=== PATIENT | male | born 1985 | race African-American/Black ===

== ENCOUNTER 2016-05-25 06:27 | Observation (INO) ==
[2016-05-25 06:53] LABS: URINE MICRO REVIEW NEEDED? NO; URINE SOURCE VOIDED
[2016-05-25 06:57] LABS: BILIRUBIN URINE NEGATIVE (NEGATIVE); BLOOD URINE NEGATIVE (NEGATIVE); COLOR YELLOW; GLUCOSE URINE NEGATIVE (NEGATIVE); LEUKOCYTES URINE NEGATIVE (NEGATIVE); NITRITE URINE NEGATIVE (NEGATIVE); PH URINE 8.5; PROTEIN URINE 70 mg/dL (NEGATIVE); SP GRAVITY URINE 1.024; TURBIDITY URINE HAZY (CLEAR); UROBILINOGEN URINE 2 mg/dL (NORMAL)
[2016-05-25 06:58] LABS: UR EPITHELIAL CELLS <10 /HPF (<10); URINE BACTERIA NEGATIVE /HPF; URINE RBC <10 /HPF (<10); URINE WBC <10 /HPF (<10)
[2016-05-25] MEDS ORDERED: ZOFRAN ODT PO ONE (06:58)
[2016-05-25] MEDS ORDERED: PROTONIX PO ONE (06:58)
--- NOTE | 2016-05-25 07:04 | PROVIDER DOCUMENTATION ---
HPI-Abdominal Pain/GI Problem - History of Present Illness-ABD Nature of Presenting Problems: WAKE UP W UPSET STOMACH //NAUSEA AND VOMITING GASTRIC JUICE TIMES 2 ,,,ALSO FELT HOT ....PT W/HX OF GERD .AND SIMILAR SXS BEFORE ..PT LAST CT ON SHOWS SMALL [place] Abdominal Pain Onset Location: reports: epigastric Pain Radiation: reports: epigastric Quality of Pain: reports: cramping Severity in ED: reports: moderate Onset/Duration: reports: 4-6 hours ago Timing: reports: improving, intermittent Activities at Onset: reports: other (PT [employer]) Exposure to sick contacts?: No Associated Symptoms: reports: heartburn, muscle aches, sinus congestion/drainage , nausea, vomiting. denies: constipation, EENT symptoms, genitourinary problems Last BM: 24 hours ago Dark Stools Present?: reports: none noticed Rectal Pain: reports: none # of Vomiting Episodes: 2 Emesis Description: reports: clear Bruising or Bleeding Gums?: No Similar Symptoms Previously?: Yes Recently seen or treated by another doctor?: No <Mark Choi - Last Filed: 05/25/16 08:11> <Sloan Castro - Last Filed: 05/25/16 11:52> - General Chief Complaint: Vomiting Stated Complaint: FEVER/VOMITING Time Seen by Provider: 05/25/16 06:43 Allergies/Adverse Reactions: Patient Allergies Allergy/AdvReac Type Severity Reaction Status Date / Time No Known Allergies Allergy Verified 05/25/16 07:43 Home Medications: Home Medication List Medication Instructions Recorded Confirmed Last Taken Type Ondansetron Odt [Zofran 4 mg Odt] 4 mg PO Q6H PRN PRN #10 tablet 05/25/16 Unknown Rx Pantoprazole [Protonix] 40 mg PO DAILY@0700 #30 tablet 05/25/16 Unknown Rx Promethazine [Phenergan] 25 mg PO Q6H PRN PRN #10 tablet 05/25/16 Unknown Rx Review of Systems - Adult - REVIEW OF SYSTEMS - ADULT Constitutional: reports: see HPI All Other Systems: Reviewed and Negative <Mark Choi - Last Filed: 05/25/16 08:11> Past History - Adult - PAST MEDICAL HISTORY-ADULT Review of Records: reports: Old Records Reviewed, Nursing Assessment Review, Medications Reviewed, Social history reviewed & non-contributory. Major Childhood Illnesses: reports: denies history Cardiovascular: reports: denies history Respiratory: reports: denies history Gastrointestinal: reports: GERD Obstetrical/Gynecological: reports: denies history Genitourinary: reports: denies history Musculoskeletal: reports: denies history Neurological: reports: denies history Endocrine/Immune: reports: denies history Other Conditions: reports: denies history - PRIOR SURGERIES/PROCEDURES Surgical/Procedure History: reports: hernia repair, orthopedic (extremity), other - PRIOR HOSPITALIZATIONS Prior Hospitalizations: reports: for other non-related - IMMUNIZATION STATUS Childhood Immunizations: UTD Flu Vaccine: See Nurse Assessment - FAMILY HISTORY Family History: reviewed, not pertinent - SOCIAL HISTORY Smoking: less than 1 pack/day Provider spent 3-5 mins advising pt. on dangers of tobacco.: Discussed manners to quit use, and f/u contacts for add'l counseling. Substance Use: none presently/history of abuse Alcohol Use Frequency: once a week Number of drinks per typical drinking period:: 1 drink Living Situation: family <Mark Choi - Last Filed: 05/25/16 08:11> Physical Exam-General - PHYSICAL EXAM-ADULT Initial Vital Signs Reviewed: Yes - CONSTITUTIONAL General Appearance: appears well, alert, no apparent distress - EYES Eyes: PERRL/EOMI - HEAD, EARS, NOSE, MOUTH & THROAT HENMT: normocephalic/atraumatic, moist mucous membranes, TMs normal, pharyngeal erythema - NECK Neck: non-tender, full range of motion - RESPIRATORY Respiratory: chest non-tender, lungs clear, normal breath sounds - CARDIOVASCULAR Cardiovascular: normal peripheral pulses, regular rate, rhythm, no edema - GASTROINTESTINAL (ABDOMEN) Abdominal Exam: normal bowel sounds, non tender, soft, no organomegaly, other ( PAIN IN THE EPIGASTRIC AREA). 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 will page hospitalist for admission due to elevated white count. 1145-- discussed with Dr Sands, accepts for admission. - EKG 1 Time of EKG reading by physician:: 07:59 EKG Read and Signed by:: Mark Choi EKG Interpretation (*Must complete 3 of following elements*): Normal Rate: 62 Rhythm: sinus rhythm with marked sinus arrhythmia [place]: normal QRS: normal [place] Interval: normal ST Wave: normal 2 Time of EKG reading by physician:: 08:26 EKG Read and Signed by:: Mark Choi EKG Interpretation (*Must complete 3 of following elements*): Abnormal Rate: 40 Rhythm: sinus bradycardia [place]: normal QRS: normal - XRAY 1 XRAY Study: Chest Impression: Normal - CT/MRI 1 CT Study: Abdomen Impression: Normal, See EMR Report CT Results: negative - CONSULTS/PCP/HOSPITALIST Notification #1 *Consult/PCP/Hospitalist*: Dr Sands Time Discussed: 11:45 Consult Disposition: Admit <Sloan Castro - Last Filed: 05/25/16 11:52> Departure - Departure Time of Disposition Order: 08:11 Certified Medical Emergency: Urgent <Mark Choi - Last Filed: 05/25/16 08:11> - Departure Time of Disposition Order: 11:50 Certified Medical Emergency: Emergent <Sloan Castro - Last Filed: 05/25/16 11:52> - Departure DIAGNOSIS: Vomiting, GERD (gastroesophageal reflux disease), Leukocytosis Disposition: ADMITTED INPATIENT 09 Condition: Stable Additional Instructions: ED Follow Up Instructions: You have been treated by a care provider in the Emergency Department. These instructions are being provided to you so you can have an understanding of how to care for yourself upon discharge. Upon discharge from the Emergency Department, you are responsible for making arrangements for follow-up care by a physician of your choice. Take all prescribed medications as directed. Return to the Emergency Department immediately for any new or worsening symptoms. You may call the Physician Referral phone number at [phone] to obtain a list of Physicians who are taking new patients. Prescriptions: Promethazine [Phenergan] 25 mg PO Q6H PRN PRN #10 tablet PRN Reason: Nausea And Vomiting Pantoprazole [Protonix] 40 mg PO DAILY@0700 #30 tablet Ondansetron Odt [Zofran 4 mg Odt] 4 mg PO Q6H PRN PRN #10 tablet PRN Reason: Nausea And Vomiting Attestation - Scribe Verification/Attestation Scribe:: Sloan Castro Acting as Scribe for:: Mark Choi Scribe documention review:: This chart was documented by a scribe and accurately reflects the service the provider performed and the decisions made by the provider. <Sloan Castro - Last Filed: 05/25/16 11:52> Physician Attestation - Physician Attestation I, the provider, attest to the following statement:: Mark Choi Physician documentation Attestation:: This documentation recorded by the scribe accurately reflects the service I personally performed and the decisions made by me. <Sloan Castro - Last Filed: 05/25/16 11:52>
[2016-05-25 07:06] LABS: UR AMPHETAMINES QUAL NONE DETECTED (NONE DETECT); UR BARBITUATES QUAL NONE DETECTED (NONE DETECT); UR BENZODIAZEPIN QUAL NONE DETECTED (NONE DETECT); UR CANNABINOIDS QUAL NONE DETECTED (NONE DETECT); UR COCAINE QUAL NONE DETECTED (NONE DETECT); UR METHADONE QUAL NONE DETECTED (NONE DETECT); UR OPIATES QUAL NONE DETECTED (NONE DETECT); UR OXYCODONE QUAL NONE DETECTED (NONE DETECT); UR PCP QUAL NONE DETECTED (NONE DETECT)
[2016-05-25] MEDS: PROTONIX IV ONE ×2 (08:37→09:00)
[2016-05-25] MEDS ORDERED: SODIUM CHLORIDE 0.9% INJ ONE ×2 (08:37)
[2016-05-25] MEDS ORDERED: PHENERGAN IV ONE (08:37)
[2016-05-25] MEDS ORDERED: NS 1,000 ML IV ONE (08:39)
[2016-05-25 09:23] LABS: AMYLASE 73 U/L (20-200); LIPASE 26 U/L (13-60)
[2016-05-25 09:26] LABS: BASO% 0.2 % (0.0-0.8); EOS# 0.54 X1000 (0.0-0.7); EOS% 2.7 % (0.0-10.0); HEMATOCRIT 47.1 % (42.0-52.0); HEMOGLOBIN 16.3 g/dL (14.0-18.0); IMM GRAN# 0.04 X1000 (0.0-0.04); IMM GRAN% 0.2 % (0.0-0.5); LYMPH# 3.98 X1000 (1.2-3.4); LYMPH% 19.8 % (20.5-51.1); MANUAL DIFF NEEDED? NO; MCH 29.1 PG (27-31); MCHC 34.6 g/dL (33-37); MONO# 1.52 X1000 (0.11-0.59); MONO% 7.6 % (1.7-9.3); MPV 11.7 FL (7.4-10.4); NEUT% 69.5 % (42.2-75.2); PLT 195 X1000 (130-400); RBC 5.61 XMIL (4.7-6.1)
[2016-05-25 09:36] LABS: AGAP 16; ALBUMIN 4.6 g/dL (3.5-5.0); ALKALINE PHOSPHATASE 99 U/L (32-122); BUN 18 mg/dL (8-22); CALCIUM 9.6 mg/dL (8.8-10.2); CHLORIDE 103 mmol/L (98-107); COSMO 285; GOT 31 U/L (10-34); GPT 43 U/L (10-44); POTASSIUM 4.3 mmol/L (3.5-5.1); SODIUM 142 mmol/L (136-145); TCO2 23 mmol/L (25-35); TOTAL BILIRUBIN 0.52 mg/dL (0.20-1.00); TOTAL PROTEIN 7.7 g/dL (6.3-8.3)
[2016-05-25 09:40] LABS: CK PROFILE 443 U/L (24-204)
[2016-05-25 09:55] LABS: CK INDEX 0.6 (0.0-2.5); CK-MB 2.64 ng/mL (0.0-5.0)
--- NOTE | 2016-05-25 11:08 | Diag Imaging Result Document ---
PROCEDURE NAME: CHEST-2 VIEWS - 05/25/2016 FRONTAL AND LATERAL CHEST, TWO VIEWS: COMPARISON: 08/07/2014. FINDINGS: The lungs are well expanded. The heart is not enlarged. The vessels are not distended. No pneumonia. No pleural effusions. IMPRESSION: No acute abnormality.
--- NOTE | 2016-05-25 11:31 | Diag Imaging Result Document ---
PROCEDURE NAME: CT ABD/PELVIS W/ IV CONT ONLY - 05/25/2016 CT OF THE ABDOMEN WITH INTRAVENOUS CONTRAST: FINDINGS: The visualized portion of the chest is unremarkable. The spleen, adrenal glands, pancreas, and kidneys are within normal limits. The liver is unremarkable. There are no gallstones and the gallbladder is unremarkable in appearance. There is no evidence of significant adenopathy. There is no evidence of bowel obstruction. The appendix is normal in appearance. CT OF THE PELVIS WITH INTRAVENOUS CONTRAST: FINDINGS: The urinary bladder is not distended. There is no evidence of free fluid. The regional skeleton is intact. IMPRESSION: No evidence of acute disease.
[2016-05-25] MEDS ORDERED: ROCEPHIN 1 GM/NS 50 ML IV ONE (11:45)
[2016-05-25 13:12] LABS: INR 1.02; PROTIME 10.7 Seconds (9.2-11.7)
[2016-05-25] MEDS ORDERED: ZOFRAN IV PRN (13:49)
[2016-05-25] MEDS ORDERED: NS 1,000 ML IV SCH (13:49)
[2016-05-25] MEDS: NS 1,000 ML IV SCH (13:50)
[2016-05-25 14:16] LABS: CK INDEX 0.6 (0.0-2.5); CK-MB 2.68 ng/mL (0.0-5.0)
[2016-05-25 14:28] LABS: HEMOGLOBIN A1C 5.5 % (4.8-6.0)
[2016-05-25] MEDS ORDERED: PROTONIX IV SCH (14:30)
[2016-05-25] MEDS ORDERED: SODIUM CHLORIDE 0.9% INJ SCH (14:30)
[2016-05-25 14:36] LABS: FREE T4 1.34 ng/dL (0.93-1.70)
--- NOTE | 2016-05-25 16:04 | HISTORY AND PHYSICAL ---
CHIEF COMPLAINT: Abdominal pain, nausea, and vomiting. HISTORY OF PRESENT ILLNESS: Mr. Nugent is a 30-year-old, male with no medical problems who presents with 48 hours of abdominal pain, malaise, subjective fevers, diaphoresis and vomiting. Yesterday, he has been really unable the eat anything. He has just not felt well. This morning he started having abdominal pain, nausea and vomiting, and came to the ER for evaluation. At this time, patient is unable to give an accurate history as he has been given IV Phenergan and is quite sleepy at this time. His girlfriend at the bedside is able to answer all questions. Two days ago, he had multiple different portions of meat from the grill and yesterday morning, he started to have what has been described as just general malaise and a little bit of queasiness. This morning, he had diaphoresis, fevers and started vomiting, but he denies any diarrhea. No chest pain. No shortness of breath. No lower extremity edema. No orthopnea. When he came to the ER, he had labs and diagnostics done. His white count was noted to be 20. However, no source of infection has been found as of yet. His chest x-ray is negative. His urinalysis does not show anything acute. The abdomen and pelvis CT are within normal limits. Interestingly, the patient has been going in and out of bradycardic rhythms in the 40s, all the way up to the 70s, which has been noted to be sinus arrhythmia, no blocks have been noted. Again, the patient denies any chest pain or shortness of breath. We are now going to admit him for observation status. PAST MEDICAL HISTORY: Nicotine dependence. PAST SURGICAL HISTORY: Hernia repair, and right knee scope. SOCIAL HISTORY: Patient smokes a half a pack to a pack a day. Reports occasional alcohol. Denies drug use. His girlfriend is at the bedside. He has 2 children. 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 FAMILY HISTORY: Significant for hypertension. REVIEW OF SYSTEMS: Fourteen-point review of systems obtained and found to be negative with the exception of the HPI. ALLERGIES: None. HOME MEDICATIONS: None. PHYSICAL EXAMINATION: VITAL SIGNS: Blood pressure is 170/89, heart rate 42, respiratory rate 16, O2 saturation 96% on room air. Temperature is 97.4. GENERAL: This is an overweight, male, lying in hospital bed in no acute distress. He is fairly sleepy at this time. NEUROLOGIC: He opens his eyes to verbal stimulus. He follows commands and he is oriented, but he falls asleep quite easily. HEENT: Head atraumatic and normocephalic. His pupils are equal, round, reactive to light. Oral mucosa is a bit dry. Trachea is midline. CHEST: Clear to auscultation bilaterally. CV: Regular rate and rhythm, bradycardic at times. S1-S2 is noted. No murmurs. GI: Soft, nondistended, nontender. Bowel sounds positive. EXTREMITIES: Without edema, clubbing or cyanosis. Pulses are palpable bilaterally. DIAGNOSTIC DATA: Chest x-ray does not show anything acute. Abdomen CT and pelvis CT is negative. EKG shows sinus bradycardia with sinus arrhythmia. WBC 20.06, hemoglobin 16, hematocrit 47.1, platelet count 195. Sodium 142, potassium 4.3, chloride 103, CO2 of 23, anion gap 16, BUN 18, creatinine 1.1. Glucose 97, calcium 9.6. LFTs within normal limits. CK 443, troponin negative. ProBNP 39, amylase 73, lipase 26. Urinalysis is negative for acute process. Toxicology is negative. ASSESSMENT AND PLAN: 1. Gastritis versus gastroenteritis: The patient will be treated with conservative therapy including IV fluids and antiemetics. We will keep him n.p.o., and monitor his response. If he has any diarrhea, we will culture this for typical pathogens. 2. Leukocytosis: Likely reactive, blood cultures have been obtained as well as a flu screen which is negative. There is no indications for antibiotics at this time. 3. Hypertension: We will write IV p.r.n. medications and monitor. 4. Altered mental status: Likely secondary to IV Phenergan. We will monitor this closely. 5. Prophylaxis will be provided with Protonix. Deep vein thrombosis prophylaxis with sequential compression devices TEDs. 6. Further recommendations to follow. Dictated by GUSTAVO Shea for Ruben Robertson MD I have seen and examined patient and I agree with the above evaluation: Ass: Intractable Nausea and Vomiting Likely Gastritis Sinus Bradycardia Hypertension Suspected street Drug use. MTDD
[2016-05-26] MEDS: NS 1,000 ML IV SCH (01:00)
--- NOTE | 2016-05-26 05:21 | EKG Report ---
Test Performed on : 05/25/2016 08:25:23 AM Test Reason : low heart rate Blood Pressure : / mmHG Vent. Rate : 040 BPM Atrial Rate : 040 BPM P-R Int : 144 ms QRS Dur : 088 ms QT Int : 450 ms P-R-T Axes : 018 058 033 degrees QTc Int : 366 ms Marked sinus bradycardia. Abnormal ECG When compared with ECG of 25-MAY-2016 07:58, (Unconfirmed) Vent. rate has decreased BY 22 BPM QT has shortened Unconfirmed Result
[2016-05-26 05:28] LABS: HEMATOCRIT 43.7 % (42.0-52.0); MCH 29.2 PG (27-31); MCHC 34.3 g/dL (33-37); MCV 85.2 FL (81-99); RBC 5.13 XMIL (4.7-6.1)
--- NOTE | 2016-05-26 05:29 | EKG Report ---
Test Performed on : 05/25/2016 07:58:41 AM Test Reason : HR Blood Pressure : / mmHG Vent. Rate : 062 BPM Atrial Rate : 062 BPM P-R Int : 166 ms QRS Dur : 094 ms QT Int : 414 ms P-R-T Axes : 032 066 039 degrees QTc Int : 420 ms Sinus rhythm. with marked sinus arrhythmia. Otherwise normal ECG No previous ECGs available Unconfirmed Result
[2016-05-26 05:48] LABS: AGAP 13; ALKALINE PHOSPHATASE 83 U/L (32-122); BUN 12 mg/dL (8-22); CALCIUM 8.6 mg/dL (8.8-10.2); CHLORIDE 103 mmol/L (98-107); COSMO 279; GOT 19 U/L (10-34); GPT 31 U/L (10-44); POTASSIUM 3.7 mmol/L (3.5-5.1); SODIUM 140 mmol/L (136-145); TCO2 24 mmol/L (25-35); TOTAL BILIRUBIN 0.55 mg/dL (0.20-1.00); TOTAL PROTEIN 6.6 g/dL (6.3-8.3)
[2016-05-26 07:18] VITALS: BP 135/79
--- NOTE | 2016-05-26 15:42 | DISCHARGE SUMMARY ---
ADMISSION DATE: 05/25/2016 DISCHARGE DATE: 05/26/2016 CONSULTATIONS: None. PERTINENT PROCEDURES: Abdomen and pelvis CT showed no evidence of acute disease. DISCHARGE DIAGNOSIS: 1. Intractable nausea and vomiting, resolved. 2. Sinus bradycardia. Stable. 3. Hypertension. Stable. 5. SPICE ( synthetic marijuana) abuse. The patient has been educated against illicit drug use. 6. Leukocytosis. Reactive 7. Altered mental status secondary to the IV Phenergan, resolved. HISTORY OF PRESENT ILLNESS: Mr. Nugent is a 30-year-old, male with no medical problems presenting with 48 hours of abdominal pain and malaise, subjective fever, diaphoresis and vomiting. He had been unable to eat anything since the day before his admission. He has just not felt well. In the a.m. he started having abdominal pain, nausea and vomiting. He came to the ED for evaluation. The patient unfortunately was unable to give an accurate history because he would be given IV Phenergan and was quite sleepy. He did have a girlfriend at the bedside who stated 2 days ago he had multiple different portions of meat from a grill and then the day prior to admission he started having generalized malaise and a little bit of queasiness. The morning of admission, diaphoresis, fevers and started vomiting. He had labs and diagnostics done in the ED. White count was noted to be 20, however no source of infection could be found. Chest x-ray was negative. Urinalysis did not show anything. Abdominal and pelvis CT were within normal limits. The patient was bradycardic in the 40s up to the 70s. Noted to be in a sinus arrhythmia with no blocks. Patient was admitted in observation status. He was given antiemetics as well as IV fluids. He was kept NPO. There were no complaints of diarrhea. He was given IV p.r.n. medications for his hypertension and was treated with a PPI. It was felt his bradycardia was secondary to suspected street drug use. Dr. Robertson has assessed the patient today. He feels he is appropriate for discharge today. Today Patient was quite open to accept that he has been using synthetic marijuana. He was advised on cessation. DISCHARGE VITAL SIGNS: Temperature is 97.9 degrees, heart rate 56, respiratory rate 17, blood pressure 135/79, O2 is 100% on room air. DISCHARGE DIET: Regular. DISCHARGE MEDICATIONS: 1. Zofran ODT 4 mg p.o. q.6 hours p.r.n. 2. Protonix 40 mg p.o. daily. DISPOSITION: Patient is being discharged home. FOLLOWUP: He will follow up with the primary care physician on the list that has been provided to him. Patient can return to the ED for any worsening of symptoms. DISCHARGE TIME: Thirty minutes. Dictated by GUSTAVO Escalona for Ruben Robertson MD MTDD
== END 2016-05-26 11:39 | disposition home or self-care (01) ==
LOC: ED 06:27 → 3N 13:33
PROVIDERS: ATTEND Internal Medicine
DX: R10.13 Epigastric pain (principal); D72.829 Elevated white blood cell count, unspecified; R11.2 Nausea with vomiting, unspecified; K21.9 Gastro-esophageal reflux disease without esophagitis; R00.1 Bradycardia, unspecified; Z68.29 Body mass index [BMI] 29.0-29.9, adult; E66.3 Overweight; R41.82 Altered mental status, unspecified; F17.210 Nicotine dependence, cigarettes, uncomplicated; R61 Generalized hyperhidrosis; Z71.6 Tobacco abuse counseling; Z79.899 Other long term (current) drug therapy; Z82.49 Family history of ischemic heart disease and other diseases of the circulatory system
CPT/HCPCS: 36415; 71020; 74177; 80053; 81001; 82150; 82550; 82553; 83036; 83690; 83880; 84439; 84443; 84484; 85025; 85027; 85610; 87040; 87804; 93005; 96361; 96374; C9113; G0480; J0696; J2550; J7030; Q9967; 80324; 80345; 80346; 80349; 80353; 80358; 80361; 80365; 83992; S0164; S0181